=== PATIENT | male | born 1945 | race Caucasian/White ===

== ENCOUNTER 2016-12-21 22:23 | Emergency (ER) | payer OTHER ==
[~2016-12-21] VITALS: Ht 182.9 cm; Wt 96.4 kg
[~2016-12-21 22:23] MED LIST: CIPRO500 MG PO; FLAGYL500 MG PO; ZOFRAN4 MG PO
[2016-12-21] MEDS ORDERED: DILTIAZEM 24HR120 MG PO (22:47)
[2016-12-21] MEDS ORDERED: LEVOTHYROXINE100 MCG PO (22:47)
[2016-12-21 22:52] LABS: ADD MIUA? NO; BILIRUBIN NEGATIVE; BLOOD NEGATIVE; COLOR YELLOW ((YELLOW)); GLUCOSE (STRIP) NEGATIVE; KETONES NEGATIVE; LEUKOCYTES NEGATIVE; NITRITE NEGATIVE; PROTEIN (STRIP) NEGATIVE; SPECIFIC GRAVITY 1.015 (1.000-1.030); UCUL ADDED? NO; UROBILINOGEN 0.2 MG/DL (0.2-1.0)
[2016-12-21 23:35] LABS: HEMATOCRIT 37.1 % (38.0-50.0); MCHC 35.8 G/DL (30.0-36.0); MCV 89.4 FL (86-99); MEAN PLAT.VOLUME 9.8 uM^3 (9.0-12.4); PLATELET COUNT 202 K/uL (156-360); RBC DIS.WIDTH-CV 12.3 % (11.8-14.6); RBC DIS.WIDTH-SD 39.4 % (39-53); RED BLOOD COUNT 4.15 M/uL (4.00-5.50); WHITE BLOOD COUNT 8.5 K/uL (4.1-10.2)
[2016-12-21 23:42] LABS: CHLORIDE 108 mEq/L (99-109); POTASSIUM 4.2 mEq/L (3.7-5.4); SODIUM 140 mEq/L (136-147)
[2016-12-21 23:44] LABS: GLUCOSE 91 mg/dL (70-99)
[2016-12-21 23:46] LABS: ANION GAP 9 MEQ/L (2-14); TOTAL BILIRUBIN 0.4 mg/dL (0.0-1.0)
[2016-12-21 23:48] LABS: ALKALINE PHOSPHATASE 75 IU/L (3-129); GFR ESTIMATE (CALCULATED) > 59 mL/min/
[2016-12-21 23:49] LABS: UREA NITROGEN (BUN) 16 mg/dL (9-23)
[2016-12-22] MEDS ORDERED: ZOFRAN ODT4 MG PO (00:15)
[2016-12-22] MEDS ORDERED: PERCOCET 5/31 TABLET PO (01:27)
[2016-12-22 02:39] VITALS: BP 136/81
== END 2016-12-22 02:41 | disposition home or self-care (01) ==
LOC: EME 22:23 → RME 22:23
DX: Q43.8 Other specified congenital malformations of intestine (principal); Z87.442 Personal history of urinary calculi
CPT/HCPCS: 74177; 80053; 81003; 85027; 99281; 99285; J1885; J2270; J2405